=== PATIENT | female | born 1975 | race Caucasian/White ===

== ENCOUNTER → 2017-12-14 | Outpatient (CLI) | payer BC ==
--- NOTE | 2017-12-14 13:15 | NM ---
EXAM DESCRIPTION: Hepatobiliary scan w/ fatty meal CLINICAL HISTORY: ABDOMINAL PAIN COMPARISON: Correlation is made with abdominal sonogram December 05, 2017. RADIOPHARMACEUTICAL: 8.0 mCi technetium 99 M mebrofenin IV Fatty meal equals 16 ounces of Ensure Plus. FINDINGS: There is prompt appropriate accumulation of the radiopharmaceutical by the liver with excretion into the biliary ductal system, gallbladder, and small bowel in and appropriate time frame. Gallbladder ejection fraction is assessed over 29 min time period following fatty meal administration and shows a gallbladder ejection fraction of 60%. This is normal. IMPRESSION: Normal hepatobiliary study with normal gallbladder ejection fraction of 60% after fatty meal. Electronically signed by: Carlos Welch MD 12/14/2017 1:14 PM CDT
== END ==
LOC: NM 09:46
PROVIDERS: ATTEND Family Medicine
DX: R10.9 Unspecified abdominal pain (principal)
CPT/HCPCS: 78227; A9537

== ENCOUNTER → 2018-08-23 | Outpatient (CLI) | payer BC | LOC: LAB.O 08:29 | PROVIDERS: ATTEND Family Medicine | DX: R21 Rash and other nonspecific skin eruption (principal); R53.83 Other fatigue ==

== ENCOUNTER → 2018-09-21 | Outpatient (CLI) | payer BC | LOC: LAB.O 14:16 | PROVIDERS: ATTEND Family Medicine | DX: Z77.9 Other contact with and (suspected) exposures hazardous to health (principal) ==

== ENCOUNTER → 2020-05-04 | Outpatient (CLI) | payer BC | LOC: GMAL 16:59 | PROVIDERS: ATTEND Family Medicine | DX: R00.0 Tachycardia, unspecified (principal) ==